=== PATIENT | female | born 1965 | race Caucasian/White ===

== ENCOUNTER 2018-02-11 10:42 | Outpatient (CLI) | payer OTHER | END 2018-02-11 10:43 | disposition home or self-care (01) | LOC: BICMAMMO 10:42 | PROVIDERS: ATTEND Obstetrics & Gynecology | DX: Z12.31 Encounter for screening mammogram for malignant neoplasm of breast (principal); R92.1 Mammographic calcification found on diagnostic imaging of breast; Z80.3 Family history of malignant neoplasm of breast | CPT/HCPCS: 77063; 77067 ==

== ENCOUNTER 2023-06-03 10:06 | Outpatient (CLI) | payer OTHER | END 2023-06-03 10:07 | disposition home or self-care (01) | LOC: BICMAMMO 10:06 | PROVIDERS: ATTEND Physician Assistant | DX: C50.911 Malignant neoplasm of unspecified site of right female breast (principal); N63.15 Unspecified lump in the right breast, overlapping quadrants | CPT/HCPCS: 19083; 77066; 88305; 88341; 88342; 88360; G0279 ==

== ENCOUNTER 2023-06-22 14:09 | Outpatient (CLI) | payer OTHER ==
[2023-06-22 15:33] LABS: #Basophils 0.1 10x3/uL (0.0-0.2); #Eosinphils 0.2 10x3/uL (0.0-0.5); #Monocytes 0.5 10x3/uL (0.0-1.1); #Neutrophils 2.7 10x3/uL (1.5-8.4); %Basophils 1.1 % (0.0-2.0); %Eosinophils 4.4 % (0.0-6.0); %Monocytes 9.8 % (0.0-10.0); %Neutrophils 49.5 % (40.0-75.0); Hematocrit 42.7 % (34.9-44.5); Hemoglobin 14.6 g/dL (12.0-15.5); Mean Corpuscular HGB CONC 34.2 g/dL (32.0-36.0); Mean Corpuscular Volume 90.7 fl (81.6-98.3); Mean Platelet Volume 9.9 fl (7.4-10.4); Platelet Count 321 10x3/uL (150-450); RBC Distribution Width 12.6 % (11.5-14.5); Red Blood Cell (RBC) Count 4.71 10x6/uL (3.90-5.03); White Blood Cell (WBC) Count 5.5 10x3/uL (3.5-10.5)
[2023-06-22 15:53] LABS: Anion Gap 12 mmol/L (10-20); BUN (Urea Nitrogen) 15 mg/dL (9.8-20.1); Calc. Creatinine Clearance 0 mL/min (70-130); Carbon Dioxide 27 mmol/L (22-29); Chloride 104 mmol/L (98-107); Estimated GFR 86; Glucose 104 mg/dL (70-105); Potassium 4.2 mmol/L (3.5-5.1); Sodium 139 mmol/L (136-145)
== END 2023-06-22 14:10 | disposition home or self-care (01) ==
LOC: LABBT 14:09
PROVIDERS: ATTEND Specialist
DX: Z01.818 Encounter for other preprocedural examination (principal); C50.911 Malignant neoplasm of unspecified site of right female breast
CPT/HCPCS: 71046; 80048; 85025; 93005; 93010

== ENCOUNTER 2023-06-24 11:34 | Day surgery (SDC) | payer OTHER ==
[2023-06-22 14:45] VITALS: BMI 24.1
[2023-06-24] MEDS ORDERED: Ketorolac Tromethamine 30 MG (1 mL) VIAL ONE (11:54)
[2023-06-24] MEDS ORDERED: Acetaminophen 500 MG TAB ONE (11:54)
[2023-06-24] MEDS ORDERED: Bupivacaine 0.25% HCL 30 ML VIAL ONE (14:07)
[2023-06-24] MEDS ORDERED: EPINEPHrine 1 MG/ML VIAL ONE (14:07)
[2023-06-24] MEDS ORDERED: Lidocaine 2% PF 5 ML VIAL ONE (14:50)
[2023-06-24] MEDS ORDERED: fentaNYL PF 100 MCG/2 ML SYRINGE ONE (14:56)
[2023-06-24] MEDS ORDERED: Midazolam HCl 2 mg/2 ml Vial ONE (14:56)
[2023-06-24] MEDS ORDERED: PROPOFOL 60 ML ONE (14:57)
[2023-06-24] MEDS ORDERED: Sodium Chloride 0.9% 100 ML ONE (14:58)
[2023-06-24] MEDS ORDERED: CEFAZOLIN 2 GM VIAL ONE (14:58)
[2023-06-24] MEDS ORDERED: Lidocaine 1% PF 5 ML VIAL ONE (15:04)
== END 2023-06-24 16:50 | disposition home or self-care (01) ==
LOC: SDC 11:34
PROVIDERS: ATTEND Specialist
PROC: 0JH63WZ Insertion of Totally Implantable Vascular Access Device into Chest Subcutaneous Tissue and Fascia, Percutaneous Approach (ICD-10-PCS; principal; 2023-06-24)
DX: C50.911 Malignant neoplasm of unspecified site of right female breast (principal); R63.5 Abnormal weight gain; Z79.899 Other long term (current) drug therapy; Z98.890 Other specified postprocedural states
CPT/HCPCS: 71045; C1788; J0171; J0665; J1642; J1885; J2001; J2250; J2704; J3490

== ENCOUNTER 2023-10-12 12:42 | Outpatient (CLI) | payer OTHER | END 2023-10-12 12:43 | disposition home or self-care (01) | LOC: ULT 12:42 | PROVIDERS: ATTEND Internal Medicine Hematology & Oncology | DX: Z51.11 Encounter for antineoplastic chemotherapy (principal); C50.811 Malignant neoplasm of overlapping sites of right female breast; I08.1 Rheumatic disorders of both mitral and tricuspid valves; Z79.899 Other long term (current) drug therapy | CPT/HCPCS: 93306 ==